=== PATIENT | male | born 1960 | race Caucasian/White ===

== ENCOUNTER 2018-10-05 13:14 | Emergency (ER) | payer MEDICARE, MEDICAID ==
[~2018-10-05] VITALS: Ht 180.3 cm; Wt 95.0 kg
[2018-10-05 15:48] VITALS: BP 126/77
== END 2018-10-05 16:27 | disposition home or self-care (01) ==
LOC: ED 15:39
DX: E11.65 Type 2 diabetes mellitus with hyperglycemia (principal); Z79.899 Other long term (current) drug therapy
CPT/HCPCS: 36415; 80053; 81003; 82010; 82803; 82962; 83690; 84484; 85025; 93005; 99284; J7030